=== PATIENT | male | born 1970 | race African-American/Black ===

== ENCOUNTER 2017-10-22 05:34 | Inpatient (IN) | payer OTHER ==
[2017-10-22] MEDS ORDERED: DALBAVANCIN HCL 1,500 MG in DEXTROSE 5%-WATER - 500 ML IVPB ONE ×2 (06:06→06:30)
[2017-10-22] MEDS ORDERED: KETOROLAC TROMETHAMINE 30 MG/1 ML VIAL IVPUSH ONE (06:06)
--- NOTE | 2017-10-22 06:10 | PDOC ---
Attending Attestation - Resident Resident Name: Sa Radhaira - ED Attending Attestation I have performed the following: I have examined & evaluated the patient, The case was reviewed & discussed with the resident, I agree w/resident's findings & plan - HPI HPI: 10/22/17 06:05 47y/o M no sig pmh p/w painful bug bite to R knee for 2 days. Patient likely sustained a bite about 2 days ago, began developing localize redness to the area which has been extending over the last 48 hours, this morning had some subjective fever/chills with progressive pain to the area so he presents for evaluation. No travel, no motor or sensory deficit, no other complaints. - Physicial Exam PE: 10/22/17 06:06 Afebrile, vital signs normal without evidence of SIRS Well-appearing without acute distress except when ranging right knee Right lower extremity: 3-4 cm area of warmth, tender, erythematous induration medial to the patella, some surrounding soft tissue swelling with expansion of the cellulitis proximally and distally 5-6 cm, not quite circumferential. No obvious knee effusion, able to range but with some discomfort. Neurovascularly intact distally. Small excoriation over the induration without areas of fluctuance or purulence or bleeding. No crepitus. - Medical Decision Making 10/22/17 06:08 47-year-old immunocompetent male with infected bug bite to right leg, progressive cellulitis without evidence of deep tissue or joint infection. Neurovascularly intact, hemodynamically stable without evidence of sepsis. Check CBC and send blood cultures Trial of Dalvance for presumed staph/strep infection - discussed and approved by Dr. Alvarenga Pain control - if symptoms improved and no red flags on workup, consider discharge with return for wound check -- unclear whether indurated area may progress to abscess, though no evidence of such at this time.
[2017-10-22 06:21] LABS: EOS % 1.4 % (0-4.5); HEMATOCRIT 42.9 % (35.4-49); HEMOGLOBIN 14.5 GM/dL (11.7-16.9); MCHC 33.9 g/dl (32.0-35.9); MEAN CELL VOLUME 97.2 fl (80-96); MEAN PLT VOLUME 8.7 fl (7.5-11.1); MONO % 13.4 % (3.8-10.2); NEUT % 68.2 % (42.8-82.8); PLATELET COUNT 181 K/MM3 (134-434); RBC 4.41 M/mm3 (4.00-5.60); RDW 11.9 % (11.9-15.9); WHITE BLOOD COUNT 9.2 K/mm3 (4.0-10.0)
--- NOTE | 2017-10-22 06:21 | PDOC ---
History of Present Illness - General Chief Complaint: Bite Stated Complaint: INSECT BITE,SWELLING RT LEG Time Seen by Provider: 10/22/17 05:38 History Source: Patient Exam Limitations: No Limitations - History of Present Illness Initial Comments: 10/22/17 06:09 Pt is a previously healthy 47yo m presenting to ED with complaints of R knee swelling and pain. Pt works for [employer] and thinks he was bit by a bug on 3 days ago because 2 days ago he woke up and noticed his R knee was more swollen and painful. He went to work yesterday and was unable but he was in pain. Pt says he is unable to fully bend his R knee, feels the pain go up to his R groin and R calf. He felt chills today, which is what prompted him to come to the ED for evaluation. Pt admits to subjective fevers and slight dizziness. He denies headache, neck stiffness, pain in other joints, abdominal pain, n/v/d, chest pain, SOB, numbness/tingling. PMH: none PSH: none Meds: none Social: quit tobacco 6 months ago, occasional alcohol use Allergies: nkda Past History - Past Medical History Allergies/Adverse Reactions: Allergies Allergy/AdvReac Type Severity Reaction Status Date / Time No Known Allergies Allergy Verified 10/22/17 05:53 Home Medications: Ambulatory Orders No Home Medications 0 dose .ROUTE UTDICT 04/28/13 - Suicide/Smoking/Psychosocial Hx Smoking History: Never smoked Have you smoked in the past 12 months: No Number of Cigarettes Smoked Daily: 1 Information on smoking cessation initiated: No 'Breaking Loose' booklet given: 04/28/13 Hx Alcohol Use: No Drug/Substance Use Hx: No Substance Use Type: None Review of Systems - Review of Systems Constitutional: Yes: Chills, Fever HEENTM: No: Recent change in vision, Double Vision, Nose Congestion Respiratory: No: Cough, Shortness of Breath Cardiac (ROS): No: Chest Pain, Lightheadedness, Palpitations, Syncope ABD/GI: No: Blood Streaked Bowels, Constipated, Diarrhea, Nausea, Vomiting, Abdominal cramping : Yes: Frequency. No: Burning, Dysuria Musculoskeletal: Yes: Joint Pain (R knee), Joint Stiffness (R knee). No: Back Pain, Muscle Pain, Muscle Weakness, Neck Pain Integumentary: Yes: Erythema (R knee), Rash (R knee) Neurological: No: Headache, Numbness, Paresthesia, Tingling Psychiatric: No: Emotional Problems Hematologic/Lymphatic: No: Anemia *Physical Exam - Vital Signs Last Vital Signs Temp Pulse Resp BP Pulse Ox 98.3 F 82 18 113/66 96 10/22/17 05:35 10/22/17 05:35 10/22/17 05:35 10/22/17 05:35 10/22/17 05:35 - Physical Exam Comments: 10/22/17 06:22 Pt brought into room by wheelchair due to reduced ROM of L knee General Appearance: Yes: Nourished, Appropriately Dressed, Mild Distress HEENT: positive: EOMI, LELAND, Pharynx Normal. negative: Pale Conjunctivae, Scleral Icterus (R), Scleral Icterus (L), Nasal Congestion, Sinus Tenderness Neck: positive: Trachea midline, Supple. negative: Lymphadenopathy (R), Lymphadenopathy (L) Respiratory/Chest: positive: Lungs Clear, Normal Breath Sounds. negative: Crackles, Rales, Rhonchi, Stridor, Wheezing Cardiovascular: positive: Regular Rhythm, Regular Rate, S1, S2, Murmur. negative: JVD Vascular Pulses: Carotid (R): 2+, Carotid (L): 2+, Dorsalis-Pedis (R): 2+, Doralis-Pedis (L): 2+ Gastrointestinal/Abdominal: positive: Normal Bowel Sounds, Soft. negative: Distended, Guarding, Rebound, Tenderness Lymphatic: negative: Adenopathy (No R inguinal adenopathy) Musculoskeletal: positive: Decreased Range of Motion ((active and passive) of R knee. Tender to palpation on anterior aspect medial >lateral. no tenderness posteriorly). negative: CVA Tenderness Extremity: positive: Normal Capillary Refill. negative: Coldness, Cyanosis, Pedal Edema, Swelling, Calf Tenderness Integumentary: positive: Erythema ([id number] area of erythema on R knee extending to R thigh and R calf. Tender to palpation. ), Swelling, Other ( vesicle on medial aspect of R knee, not draining. ). 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 Pt afebrile and hemodynamically stable. DDx: cellulitis, septic arthritis, nec fascitis, lyme disease PE findings did not show target lesion typical for lyme disease. Higher suspicion for MRSA cellulitis given rapid progression of erythema and swelling. No creptius or bullae, low suspicion for nec fas. Pt able to ambulate knee, not frozen low suspicion for septic joint. Will treat cellulitis. -blood cultures, cbc, cmp, lac, ua. -Dalvance, toradol, percocet. Plan for now is to evaluate pt for ability to ambulate. If pt is ambulatory, can DC pt after dose of Dalvance. If unable to ambulate or if unable to obtain approval for Dalvance use in ED by ID, will admit obs and give Vanc. 10/22/17 06:27 Got approval for Dalvance use by ID. 10/22/17 06:35 No white count, normal differential. -Will reevaluate pt and see if he can be ambulatory with pain control. If ambulatory, pt can be dc with pain meds and will need to come back on Wednesday for wound check. Pt does not have PCP. Given handout with PCP affiliated with [facility]. 10/22/17 07:[address] Care handed off to Dr. Hassan *DC/Admit/Observation/Transfer Diagnosis at time of Disposition: Cellulitis Qualifiers: Site of cellulitis: extremity Site of cellulitis of extremity: lower extremity Laterality: right Qualified Code(s): L03.115 - Cellulitis of right lower limb - Discharge Dispostion Disposition: HOME Condition at time of disposition: Improved Decision to Admit order: No - Referrals - Patient Instructions Printed Discharge Instructions: DI for Cellulitis -- Adult, DI for Insect Bites and Stings Additional Instructions: You were seen here today because of swelling and pain in your right knee. You have cellulitis, a bacterial infection of the skin that can be treated with antibiotics. We did blood work here and your results were normal. You were started on antibiotics and given medication for pain control. You do not need to take antibiotics at home. You can take Motrin for pain control. Please come back to the ED on Wednesday for a wound check so that we can make sure you are healing properly. Please come back to the ED if: your pain gets worse, swelling gets worse, you are unable to move or bend your knee, you develop fevers, you develop headache and/or neck stiffness or if any new concerning symptom develops. Thank you - Post Discharge Activity
[2017-10-22] MEDS ORDERED: KETOROLAC TROMETHAMINE 30 MG/1 ML VIAL ONE (06:25)
[2017-10-22] MEDS ORDERED: SODIUM CHLORIDE 1,000 ML IV STA (06:30)
[2017-10-22 06:44] LABS: ALBUMIN 3.4 g/dl (3.4-5.0); ALK PHOS 57 U/L (45-117); ANION GAP 6 MMOL/L (8-16); BILIRUBIN,TOTAL 2.1 mg/dL (0.2-1.0); BLOOD UREA NITROGEN 14 mg/dL (7-18); CALCIUM 8.5 mg/dL (8.5-10.1); CHLORIDE 103 mmol/L (98-107); CO2 29 mmol/L (21-32); GLUCOSE,RANDOM 92 mg/dL (74-106); SODIUM 138 mmol/L (136-145); TOT PROT 6.7 g/dl (6.4-8.2)
[2017-10-22 06:47] LABS: POTASSIUM 4.1 mmol/L (3.5-5.1); SGOT/AST 21 U/L (15-37); SGPT/ALT 21 U/L (12-78)
[2017-10-22 07:03] LABS: URINE APPEARANCE CLEAR; URINE BILIRUBIN NEGATIVE (<2.0 mg/dL); URINE COLOR YELLOW; URINE GLUCOSE (UA) NEGATIVE (NEGATIVE); URINE KETONE NEGATIVE (NEGATIVE); URINE LEUK ESTERASE NEGATIVE (NEGATIVE); URINE NITRITE NEGATIVE (NEGATIVE); URINE PROTEIN NEGATIVE (NEGATIVE); URINE UROBILINOGEN 4.0 E.U/dl mg/dL (0.2-1.0)
[2017-10-22] MEDS ORDERED: ACETAMINOPHEN 1000 MG/100 ML VIAL (NON FORMULARY) IVPB ONE (08:30)
--- NOTE | 2017-10-22 09:10 | PDOC ---
*Physical Exam - Vital Signs Last Vital Signs Temp Pulse Resp BP Pulse Ox 98.3 F 82 18 113/66 96 10/22/17 05:35 10/22/17 05:35 10/22/17 05:35 10/22/17 05:35 10/22/17 05:35 - Physical Exam General Appearance: Yes: Nourished, Appropriately Dressed. No: Apparent Distress Vascular Pulses: Dorsalis-Pedis (R): 3+, Doralis-Pedis (L): 3+ Extremity: positive: Normal Capillary Refill, Swelling (right knee), Erythema ( warmth to right knee), Inflammation (right knee), Other (pain out of proportion , decreased ROM in flexion Right knee). negative: Pedal Edema Neurologic: positive: Fully Oriented, Alert, Normal Mood/Affect, Normal Response ED Treatment Course - LABORATORY CBC & Chemistry Diagram: 10/22/17 06:10 10/22/17 06:10 - ADDITIONAL ORDERS Additional order review: Laboratory Results 10/22/17 10/22/17 10/22/17 06:40 06:10 06:10 Sodium 138 Potassium 4.1 Chloride 103 Carbon Dioxide 29 Anion Gap 6 L BUN 14 Creatinine 1.0 Creat Clearance w eGFR > 60 Random Glucose 92 Lactic Acid 0.8 Calcium 8.5 Total Bilirubin 2.1 H AST 21 ALT 21 Alkaline Phosphatase 57 Total Protein 6.7 Albumin 3.4 Urine Color Yellow Urine Appearance Clear Urine pH 7.0 Ur Specific [place] 1.019 Urine Protein Negative Urine Glucose (UA) Negative Urine Ketones Negative Urine Blood Negative Urine Nitrite Negative Urine Bilirubin Negative Urine Urobilinogen 4.0 e.u/dl Ur Leukocyte Esterase Negative 10/22/17 06:10 RBC 4.41 MCV 97.2 H MCHC 33.9 RDW 11.9 MPV 8.7 Neutrophils % 68.2 Lymphocytes % 16.0 Monocytes % 13.4 H Eosinophils % 1.4 Basophils % 1.0 - RADIOLOGY Radiology Studies Ordered: Category Date Time Status LOWER EXTREMITY CT WITH CONTR [CT] Stat CT Scan 10/22/17 08:28 Ordered - Medications Given in the ED: ED Medications Discontinued Medications Generic Name Dose Route Start Last Admin Trade Name Freq PRN Reason Stop Dose Admin Dalbavancin 1,500 mg/ Dextrose 500 mls @ 1,000 mls/hr 10/22/17 06:30 08:30 IVPB 10/22/17 06:59 1,000 mls/hr ONCE ONE Administration Sodium Chloride 1,000 mls @ 1,000 mls/hr 10/22/17 06:30 10/22/17 06:36 Normal Saline - IV 10/22/17 07:29 1,000 mls/hr ASDIR STA Administration Ketorolac Tromethamine 30 mg 10/22/17 06:06 10/22/17 06:30 Toradol Injection - IVPUSH 10/22/17 06:07 30 mg ONCE ONE Administration Oxycodone/Acetaminophen 1 combo 10/22/17 06:06 10/22/17 06:29 Percocet 5/325 - PO 10/22/17 06:07 1 combo ONCE ONE Administration Medical Decision Making - Medical Decision Making 10/22/17 09:02 47 yo male presents to the ED with a painful and swollen right knee after 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 Pain is out of proportion with flexion. On inspection, 3 cm wide bite wound to the medial aspect of the knee, Knee is swollen red and hot to the touch when compared bilaterally. Patient received pain control and was started on dalbavancin. On re-assessment this AM patient found to still be in excessive pain and is unable to ambulate because of it. Pt also notes the redness is extending distally and proximally. Ordered CT with IV cont of R knee to r/o deep space infection CT shows sub cutaneous edema involving the ventral half of the knee 1 X .7 X .5 suferficial collection which could represent an abbess small to moderate superficial patellar joint effusion Will admit to hospitalist and consult ortho for possible septic joint Spoke with Dr. cheek who would like ID called and consulted and have the pt admitted 10/22/17 13:26 *DC/Admit/Observation/Transfer Diagnosis at time of Disposition: Cellulitis Qualifiers: Site of cellulitis: extremity Site of cellulitis of extremity: lower extremity Laterality: right Qualified Code(s): L03.115 - Cellulitis of right lower limb - Discharge Dispostion Condition at time of disposition: Stable Decision to Admit order: Yes - Referrals - Patient Instructions Printed Discharge Instructions: DI for Cellulitis -- Adult, DI for Insect Bites and Stings Additional Instructions: You were seen here today because of swelling and pain in your right knee. You have cellulitis, a bacterial infection of the skin that can be treated with antibiotics. We did blood work here and your results were normal. You were started on antibiotics and given medication for pain control. You do not need to take antibiotics at home. You can take Motrin for pain control. Please come back to the ED on Wednesday for a wound check so that we can make sure you are healing properly. Please come back to the ED if: your pain gets worse, swelling gets worse, you are unable to move or bend your knee, you develop fevers, you develop headache and/or neck stiffness or if any new concerning symptom develops. Thank you - Post Discharge Activity
[2017-10-22] MEDS ORDERED: ACETAMINOPHEN INJECTION 100 ML IVPB ONE (09:36)
--- NOTE | 2017-10-22 13:29 | CONSULT ---
Consult - text type - Consultation Consultation Note: FULL CONSULT DICTATED IMP: CELLULITIS / SMALL ABSCESS LEFT KNEE. NO EVIDENCE OF SEPTIC ARTHRITIS PLAN: IV ABX PER ID, WILL FOLLOW. MAY NEED TO BE OPENED.
--- NOTE | 2017-10-22 13:48 | HP ---
Admitting History and Physical - Admission Chief Complaint: r knee pain and swelling History of Present Illness: This is a 47year old male with no pmhx, goes to the gym 3x/week. This past Wednesday pt was working and felt something bite his R knee, as it started itching. The knee then swelled up and was warm. He did not work Wednesday, took tylenol for pain and then returned to work and swelling worsened when he was home, along with tenderness tracking up his R thigh, fever, chills. 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 Currently, denies fever, chills, sob, cp, n/v. 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 History of Recent Travel: No Home Medications - Allergies Allergies/Adverse Reactions: Allergies Allergy/AdvReac Type Severity Reaction Status Date / Time No Known Allergies Allergy Verified 10/22/17 05:53 - Home Medications Home Medications: Ambulatory Orders No Home Medications 0 dose .ROUTE UTDICT 04/28/13 Review of Systems - Review of Systems Constitutional: reports: Chills, Fever Eyes: reports: No Symptoms HENT: reports: No Symptoms Neck: reports: No Symptoms Cardiovascular: reports: No Symptoms Respiratory: reports: No Symptoms Gastrointestinal: reports: No Symptoms Genitourinary: reports: No Symptoms Musculoskeletal: reports: Extremity Pain Integumentary: reports: Erythema (r knee) Neurological: reports: No Symptoms Endocrine: reports: No Symptoms Hematology/Lymphatic: reports: No Symptoms Psychiatric: reports: No Symptoms Physical Examination Vital Signs: Vital Signs Temperature 97.6 F 10/22/17 12:18 Pulse Rate 60 10/22/17 12:18 Respiratory Rate 16 10/22/17 12:18 Blood Pressure 100/64 10/22/17 12:18 O2 Sat by Pulse Oximetry (%) 98 10/22/17 12:18 Constitutional: Yes: No Distress Eyes: Yes: Conjunctiva Clear HENT: Yes: Atraumatic Neck: Yes: Supple Cardiovascular: Yes: Regular Rate and Rhythm, S1, S2 Respiratory: Yes: Regular, CTA Bilaterally Gastrointestinal: Yes: Normal Bowel Sounds, Soft Renal/: Yes: WNL Breast(s): Yes: WNL Extremities: Yes: Other (R knee swelling, tenderness, erythema, referring up right thigh) Edema: No Peripheral Pulses WNL: Yes Neurological: Yes: Alert, Oriented, Cran Nerves II-XII Intact Labs: CBC, BMP 10/22/17 06:10 10/22/17 06:10 Imaging - Results Cat Scan: Report Reviewed (sq edema r knee, superficial fluid collection) Assessment/Plan Assessment: 47 year old male admitted with R knee cellulitis Plan: 1. R knee cellulitis - Dalbavcin given in ED - Per ortho, no evidence of septic arthritis, can f/u in office - Further abx per ID, ID aware - Gentle fluids 2. DVT - Heparin sq Visit type - Emergency Visit Emergency Visit: Yes ED Registration Date: 10/22/17 Care time: The patient presented to the Emergency Department on the above date and was hospitalized for further evaluation of their emergent condition. - New Patient This patient is new to me today: Yes Date on this admission: 10/22/17 - Critical Care Critical Care patient: No Hospitalist Screening - Colonoscopy Questionnaire Colonoscopy Questionnaire: Colonoscopy Questionnaire - Patient: 50 - 75 years old and never had a screening colonoscopy: Unknown History of colon or rectal polyps, or CA: Unknown History of IBD, Crohn's disease or UC: Unknown History of abdominal radiation therapy as a child: Unknown - Relative: 1 with colon or rectal CA, or polyps at age 60 or younger: Unknown Colon or rectal CA diagnosed at age 45 or younger: Unknown Multiple relatives with colon or rectal CA: Unknown - Outcome: Screening Result: Negative Screen
--- NOTE | 2017-10-22 13:52 | CONS ---
DATE OF CONSULTATION: 10/22/2017 HISTORY: The patient is a 47-year-old male complaining of knee pain. 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 Three days ago he felt like something bit him or hit him in the knee. Initially it was not too painful. It has gained speed and has been more painful for the past 3 days and presents to the emergency room. Patient denies fever and chills. PHYSICAL EXAMINATION: The patient has some erythema the size of a silver dollar on the anteromedial aspect of the knee medial to the patella. There appears to be a puncture or a deep meghan in the central of this region. No obvious fluctuance is palpable. There is no effusion in the knee. The patient has full range of motion in the knee. Negative lymphangitis or lymphadenopathy in the groin. Good motion hip, knee, ankle, and toes intact. CAT scan shows potentially a very small fluid collection in this region but no other fracture . IMPRESSION: Cellulitis, questionable small abscess. PLAN: As I do not feel a specific area of fluctuance, put the patient on IV antibiotics as prescribed by infectious disease doctor. I will admit the patient to the hospital and follow the patient. The patient may need to have this area opened. We will see how it goes and how he responds to the antibiotics before making that decision. He currently has no white count and no fever and no effusion in the knee. Admit him for IV antibiotics and observation overnight. MARCO A REYES M.D. [id number]
[2017-10-22] MEDS ORDERED: SODIUM CHLORIDE 1,000 ML IV SCH (14:00)
--- NOTE | 2017-10-22 15:45 | PN ---
Progress Note (short form) - Note Progress Note: ID Consult dictated Cellulitis/ early ST abscess R knee R/O sepsis secondary to skin source Hx MRSA soft tissue infection Pending c/s empiric vancomycin Surgical follow up
--- NOTE | 2017-10-22 16:18 | CONS ---
DATE OF CONSULTATION: DATE OF DICTATION: 10/22/2017 INFECTIOUS DISEASE CONSULTATION HISTORY OF PRESENT ILLNESS: A 47-year-old healthy male evaluated for cellulitis of the right lower extremity. Patient works for [employer]. He reports feeling a stinging sensation in his right knee on Thursday, October 19, 2017. He believes he sustained an insect bite to his right medial knee. It became pruritic, and patient started scratching it. The following day he developed increasing pain and swelling as well as redness. He presented to the emergency room, where he was found to have cellulitis and possible early soft tissue abscess. Cultures were obtained. He was empirically treated with Dalvance. He was seen in consultation by orthopedics. The patient denies any associated fever or chills. He does not have any complaints of pain at the present time. The patient reports that several years ago he had an MRSA soft tissue abscess of the right hip. PAST MEDICAL HISTORY: As above. ALLERGIES: No known allergies. MEDICATION: Medications at the present time include Tylenol, heparin, oxycodone. SOCIAL HISTORY: Works for the [employer]. He is a nonsmoker, nondrinker. SYSTEMS REVIEW: Neurologic: No loss of consciousness, seizure activity, focal weakness. Cardiac: Negative for chest pain or palpitations. Gastrointestinal: Negative vomiting or diarrhea. Genitourinary: Negative for urinary tract infection. LABORATORY DATA: White count 9.2, hematocrit 42.9, platelet count 181, creatinine 1.0, C-reactive protein 3.5. CAT scan of the right lower extremity reveals subcutaneous edema at the level of the right knee and a small superficial subcutaneous fluid collection along the ventral medial aspect of the right knee which could represent early abscess. PHYSICAL EXAMINATION: General: On exam, he is awake and alert, in no acute distress. Vital signs: Temperature 97.6, blood pressure 110/82, pulse 70 regular, respirations 18 per minute. HEENT: Sclerae anicteric. Cardiovascular: Heart sounds S1, S2. Lungs: Clear. Abdomen: Soft, nontender. Extremities: Examination of the right lower extremity, there is a 6 x 7 cm area of erythema and soft tissue swelling with slight fluctuance, tender to touch. There is no expressible pus. There also appears to be lymphangitis involving the right medial thigh. Extremities negative for edema. IMPRESSION: 1. Cellulitis/early soft tissue abscess right knee. 2. Possible sepsis secondary to skin source. 3. 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 4. Status post apparent insect bite. Await cultures. Empiric antibiotic coverage with vancomycin pending cultures. Surgical followup. Analgesics. Warm compresses. Will follow. Thank you for the kind referral. SAM MCWILLIAMS M.D. [id number]
[2017-10-22] MEDS ORDERED: VANCOMYCIN 1 GRAM (PRE-DOCKED) 1,000 MG/250 ML BAG IVPB ONE (16:28)
[2017-10-22] MEDS: VANCOMYCIN 1 GM PREMIX - 1 GM/200 ML BAG IVPB SCH (16:41)
[2017-10-22 17:57] VITALS: BMI 24.5
[2017-10-22] MEDS: oxyCODONE HCL 5 MG TABLET PO PRN (18:02)
[2017-10-22] MEDS: ACETAMINOPHEN 325 MG TABLET (FP) PO PRN (18:02)
[2017-10-22] MEDS: HEPARIN NA (PORCINE) 5,000 UNITS/ML 1ML VIAL SQ SCH (22:09)
[2017-10-23] MEDS: oxyCODONE HCL 5 MG TABLET PO PRN ×2 (01:17→07:50)
[2017-10-23] MEDS: ACETAMINOPHEN 325 MG TABLET (FP) PO PRN ×2 (01:17→07:51)
[2017-10-23] MEDS: VANCOMYCIN 1 GM PREMIX - 1 GM/200 ML BAG IVPB SCH ×2 (04:11→16:39)
[2017-10-23] MEDS: HEPARIN NA (PORCINE) 5,000 UNITS/ML 1ML VIAL SQ SCH ×3 (05:18→21:09)
[2017-10-23 07:35] LABS: BASO % 0.8 % (0-2.0); EOS % 3.6 % (0-4.5); HEMATOCRIT 41.4 % (35.4-49); LYMPH % 20.6 % (8-40); MCH 32.8 pg (25.7-33.7); MCHC 33.9 g/dl (32.0-35.9); MEAN CELL VOLUME 96.7 fl (80-96); MEAN PLT VOLUME 8.8 fl (7.5-11.1); MONO % 12.1 % (3.8-10.2); NEUT % 62.9 % (42.8-82.8); PLATELET COUNT 167 K/MM3 (134-434); RBC 4.28 M/mm3 (4.00-5.60); RDW 11.8 % (11.9-15.9); WHITE BLOOD COUNT 7.4 K/mm3 (4.0-10.0)
[2017-10-23 08:05] LABS: ALBUMIN 3.1 g/dl (3.4-5.0); ANION GAP 4 MMOL/L (8-16); BLOOD UREA NITROGEN 9 mg/dL (7-18); CALCIUM 8.5 mg/dL (8.5-10.1); CHLORIDE 104 mmol/L (98-107); CO2 31 mmol/L (21-32); GLUCOSE,RANDOM 80 mg/dL (74-106); POTASSIUM 4.1 mmol/L (3.5-5.1); SODIUM 139 mmol/L (136-145)
[2017-10-23 08:09] LABS: ALK PHOS 55 U/L (45-117); BILIRUBIN,TOTAL 1.6 mg/dL (0.2-1.0); CREATININE 1.2 mg/dL (0.7-1.3); SGOT/AST 13 U/L (15-37); SGPT/ALT 15 U/L (12-78); TOT PROT 6.2 g/dl (6.4-8.2)
[2017-10-23] MEDS ORDERED: oxyCODONE HCL 5 MG TABLET PO PRN ×2 (10:09→15:02)
--- NOTE | 2017-10-23 10:29 | PN ---
Progress Note (short form) - Note Progress Note: still with pain in his knee reports having had a "bug bite" on his left eyebrow that became swollen and drained pus two weeks ago feverish at home before admission for his knee which he again attributes to a "bugbite" Vital Signs Period Temp Pulse Resp BP Sys/Miller Pulse Ox Last 24 Hr 97.6 F-98.2 F 60-75 16-20 100-129/54-80 97-99 cor-rrr lungs clear abd soft,nt ext +pustule with surrounding erythema and fluctuance left knee CBC, BMP 10/23/17 06:00 10/23/17 06:00 Microbiology 10/22/17 06:27 Blood - Peripheral Venous Blood Culture - Preliminary Presumptive Mrsa (Pbp2a Pos) 10/22/17 06:10 Blood - Peripheral Venous Blood Culture - Preliminary NO GROWTH OBTAINED AFTER 24 HOURS, INCUBATION TO CONTINUE FOR 4 DAYS. a/p bacteremia- ?MRSA MRSA soft tissue infection repeat blood cultures esr/crp echo vancomycin vancomycin level d/w patient at length he needs a note for work
[2017-10-23] MEDS: DOCUSATE SODIUM 100 MG CAPSULE (FP) PO SCH ×2 (14:04→21:09)
--- NOTE | 2017-10-23 15:03 | PN ---
Physical Exam: SUBJECTIVE: Patient seen and examined at the bedside. Having right knee pain, now with drainage. OBJECTIVE: Vital Signs Period Temp Pulse Resp BP Sys/Miller Pulse Ox Last 24 Hr 97.7 F-98.2 F 70-75 18-20 107-129/67-80 97-99 GENERAL: The patient is awake, alert, and fully oriented, in no acute distress. HEAD: Normal with no signs of trauma. EYES: PERRL, extraocular movements intact, sclera anicteric, conjunctiva clear. No ptosis. ENT: Ears normal, nares patent, oropharynx clear without exudates, moist mucous membranes. NECK: Trachea midline, full range of motion, supple. LUNGS: Breath sounds equal, clear to auscultation bilaterally HEART: Regular rate and rhythm, S1, S2 without murmur, rub or gallop. ABDOMEN: Soft, nontender, nondistended, normoactive bowel sounds, no guarding, no rebound, no hepatosplenomegaly, no masses. EXTREMITIES: right knee localized edema and drainage NEUROLOGICAL: Normal speech, gait not observed. PSYCH: Normal mood, normal affect. SKIN: Warm, dry, normal turgor, no rashes or lesions noted Laboratory Results - last 24 hr 10/22/17 10/23/17 10/23/17 14:47 06:00 06:00 WBC 7.4 RBC 4.28 Hgb 14.0 Hct 41.4 MCV 96.7 H MCH 32.8 MCHC 33.9 RDW 11.8 L Plt Count 167 MPV 8.8 Absolute Neuts (auto) 4.7 Neutrophils % 62.9 Lymphocytes % 20.6 D Monocytes % 12.1 H Eosinophils % 3.6 D Basophils % 0.8 Nucleated RBC % 0 ESR 7 Sodium 139 Potassium 4.1 Chloride 104 Carbon Dioxide 31 Anion Gap 4 L BUN 9 Creatinine 1.2 Creat Clearance w eGFR > 60 Random Glucose 80 Calcium 8.5 Total Bilirubin 1.6 H AST 13 L D ALT 15 D Alkaline Phosphatase 55 Total Protein 6.2 L Albumin 3.1 L Active Medications Generic Name Dose Route Start Last Admin Trade Name Freq PRN Reason Stop Dose Admin Acetaminophen 650 mg 10/22/17 13:53 10/23/17 07:51 Tylenol - PO 650 mg Q4H PRN Administration PAIN LEVEL 1 - 3 Docusate Sodium 100 mg 10/23/17 14:00 10/23/17 14:04 Colace - PO 100 mg TID DEE Administration Heparin Sodium (Porcine) 5,000 unit 10/22/17 22:00 10/23/17 14:04 Heparin - SQ 5,000 unit TID DEE Administration Vancomycin HCl 1 gm in 200 mls @ 133.333 mls/hr 10/22/17 16:00 10/23/17 04:11 Vancomycin 1 Gm Premix - IVPB 133.333 mls/hr Q12H DEE Administration Protocol Oxycodone HCl 10 mg 10/23/17 15:02 Roxicodone - PO Q6H PRN PAIN LEVEL 7 - 10 Oxycodone HCl 5 mg 10/23/17 15:02 Roxicodone - PO Q6H PRN PAIN LEVEL 1-5 Zolpidem Tartrate 5 mg 10/23/17 15:02 Ambien - PO HS PRN INSOMNIA ASSESSMENT/PLAN: Patient is a 47 year old male with no significant past medical history. Admitted on 10/22/17 for right knee cellulitis. labs: + blood cultures with presumptive mrsa, one bottle. repeat blood cultures ordered. ID: Right knee cellulitis. On Vancomycin 112. Per ortho, no evidence of septic arthritis, but wound may need to be opened and drained. Minimal drainage noted , therefore will send out for culture. Pain managed with oxycodone based on pain level. physical therapy as tolerated. fen tolerating PO monitor electrolytes low salt diet prophy heparin full code Visit type - Emergency Visit Emergency Visit: Yes ED Registration Date: 10/22/17 Care time: The patient presented to the Emergency Department on the above date and was hospitalized for further evaluation of their emergent condition. - New Patient This patient is new to me today: Yes Date on this admission: 10/23/17 - Critical Care Critical Care patient: No - Discharge Referral Referred to [facility] Med [facility].C.: No
[2017-10-23] MEDS ORDERED: PT OWN MED DRAWER 7, Y5N ONE (16:29)
--- NOTE | 2017-10-23 17:19 | PN ---
Progress Note (short form) - Note Progress Note: Ortho Pt seen and examined- feeling better Selected Entries 10/23/17 15:37 Temperature 98.4 F Pulse Rate 71 Respiratory 20 Rate Blood Pressure 124/58 Laboratory Tests 10/23/17 06:00 WBC 7.4 Hgb 14.0 Hct 41.4 Plt Count 167 slight drainage from wound, no drainage was able to be expressed, decr pain, incr rom nvi a/p f/u cultures IV abx ROM exercises pain control will follow closely, may still need I&D d/w Dr. Amezquita
[2017-10-23] MEDS: ZOLPIDEM TARTRATE 5 MG TABLET PO PRN (21:09)
[2017-10-24] MEDS: oxyCODONE HCL 5 MG TABLET PO PRN ×2 (03:31→22:09)
[2017-10-24] MEDS: VANCOMYCIN 1 GM PREMIX - 1 GM/200 ML BAG IVPB SCH ×2 (03:32→16:24)
[2017-10-24] MEDS: DOCUSATE SODIUM 100 MG CAPSULE (FP) PO SCH ×3 (05:39→22:09)
[2017-10-24] MEDS: HEPARIN NA (PORCINE) 5,000 UNITS/ML 1ML VIAL SQ SCH ×3 (05:39→22:09)
[2017-10-24] MEDS: ACETAMINOPHEN 325 MG TABLET (FP) PO PRN (09:38)
[2017-10-24 09:41] LABS: BASO % 0.7 % (0-2.0); EOS % 2.4 % (0-4.5); HEMATOCRIT 43.7 % (35.4-49); HEMOGLOBIN 14.7 GM/dL (11.7-16.9); LYMPH % 18.3 % (8-40); MCH 32.4 pg (25.7-33.7); MCHC 33.6 g/dl (32.0-35.9); MEAN CELL VOLUME 96.4 fl (80-96); MEAN PLT VOLUME 9.3 fl (7.5-11.1); MONO % 13.9 % (3.8-10.2); NEUT % 64.7 % (42.8-82.8); PLATELET COUNT 196 K/MM3 (134-434); RBC 4.54 M/mm3 (4.00-5.60); RDW 11.9 % (11.9-15.9); WHITE BLOOD COUNT 8.6 K/mm3 (4.0-10.0)
--- NOTE | 2017-10-24 10:03 | PN ---
Progress Note (short form) - Note Progress Note: still with pain in his knee reports having had a "bug bite" on his left eyebrow that became swollen and drained pus two weeks ago feverish at home before admission for his knee which he again attributes to a "bugbite" no other complaints Vital Signs Period Temp Pulse Resp BP Sys/Miller Pulse Ox Last 24 Hr 98.4 F-99.3 F 71-87 18-20 106-132/58-76 96-96 cor-rrr lungs clear abd soft,nt ext + knee abscess- painful , minimal drainage bloody CBC, BMP 10/24/17 06:00 Microbiology 10/22/17 06:10 Blood - Peripheral Venous Blood Culture - Preliminary NO GROWTH OBTAINED AFTER 48 HOURS, INCUBATION TO CONTINUE FOR 3 DAYS. 10/22/17 06:27 Blood - Peripheral Venous Blood Culture - Preliminary Presumptive Mrsa (Pbp2a Pos) Laboratory Tests 10/22/17 10/24/17 13:20 06:00 ESR 15 H C-Reactive Protein 3.5 H a/p bacteremia- MRSA MRSA soft tissue infection repeat blood cultures pending ekg ordered echo ordered continue vancomycin vancomycin tough today contact isolation d/w patient at length he needs a note for work
[2017-10-24 10:05] LABS: ALBUMIN 3.4 g/dl (3.4-5.0); ANION GAP 9 MMOL/L (8-16); BLOOD UREA NITROGEN 8 mg/dL (7-18); CALCIUM 8.9 mg/dL (8.5-10.1); CHLORIDE 101 mmol/L (98-107); CO2 28 mmol/L (21-32); CREATININE 1.2 mg/dL (0.7-1.3); GLUCOSE,RANDOM 81 mg/dL (74-106); POTASSIUM 3.9 mmol/L (3.5-5.1); SGOT/AST 12 U/L (15-37); SGPT/ALT 16 U/L (12-78); SODIUM 138 mmol/L (136-145)
[2017-10-24 10:06] LABS: BILIRUBIN,TOTAL 1.5 mg/dL (0.2-1.0); TOT PROT 6.6 g/dl (6.4-8.2)
[2017-10-24 10:07] LABS: ALK PHOS 63 U/L (45-117)
--- NOTE | 2017-10-24 11:31 | PN ---
Physical Exam: SUBJECTIVE: Patient seen and examined at the bedside. Feels well, slept well. still having pain of left knee, controlled with oxy. OBJECTIVE: right knee wound with now small raised formation of scab with minimal drainage Vital Signs Period Temp Pulse Resp BP Sys/Miller Pulse Ox Last 24 Hr 98.2 F-99.3 F 71-95 18-20 106-133/58-76 96-96 GENERAL: The patient is awake, alert, and fully oriented, in no acute distress. HEAD: Normal with no signs of trauma. EYES: PERRL, extraocular movements intact, sclera anicteric, conjunctiva clear. No ptosis. ENT: Ears normal, nares patent, oropharynx clear without exudates, moist mucous membranes. NECK: Trachea midline, full range of motion, supple. LUNGS: Breath sounds equal, clear to auscultation bilaterally HEART: Regular rate and rhythm, S1, S2 without murmur, rub or gallop. ABDOMEN: Soft, nontender, nondistended, normoactive bowel sounds, no guarding, no rebound, no hepatosplenomegaly, no masses. EXTREMITIES: right knee localized edema and minimal drainage NEUROLOGICAL: Normal speech, gait not observed. PSYCH: Normal mood, normal affect. SKIN: Warm, dry, normal turgor, no rashes or lesions noted Laboratory Results - last 24 hr 10/24/17 10/24/17 10/24/17 06:00 06:00 06:00 WBC 8.6 RBC 4.54 Hgb 14.7 Hct 43.7 MCV 96.4 H MCH 32.4 MCHC 33.6 RDW 11.9 Plt Count 196 MPV 9.3 Absolute Neuts (auto) 5.6 Neutrophils % 64.7 Lymphocytes % 18.3 Monocytes % 13.9 H Eosinophils % 2.4 Basophils % 0.7 Nucleated RBC % 0 ESR 15 H Sodium 138 Potassium 3.9 Chloride 101 Carbon Dioxide 28 Anion Gap 9 BUN 8 Creatinine 1.2 Creat Clearance w eGFR > 60 Random Glucose 81 Calcium 8.9 Magnesium 2.0 Total Bilirubin 1.5 H AST 12 L ALT 16 Alkaline Phosphatase 63 C-Reactive Protein 5.5 H Total Protein 6.6 Albumin 3.4 10/24/17 06:00 WBC RBC Hgb Hct MCV MCH MCHC RDW Plt Count MPV Absolute Neuts (auto) Neutrophils % Lymphocytes % Monocytes % Eosinophils % Basophils % Nucleated RBC % ESR Sodium Potassium Chloride Carbon Dioxide Anion Gap BUN Creatinine Creat Clearance w eGFR Random Glucose Calcium Magnesium Cancelled Total Bilirubin AST ALT Alkaline Phosphatase C-Reactive Protein Total Protein Albumin Active Medications Generic Name Dose Route Start Last Admin Trade Name Freq PRN Reason Stop Dose Admin Acetaminophen 650 mg 10/22/17 13:53 10/24/17 09:38 Tylenol - PO 650 mg Q4H PRN Administration PAIN LEVEL 1 - 3 Docusate Sodium 100 mg 10/23/17 14:00 10/24/17 05:39 Colace - PO 100 mg TID DEE Administration Heparin Sodium (Porcine) 5,000 unit 10/22/17 22:00 10/24/17 05:39 Heparin - SQ 5,000 unit TID DEE Administration Vancomycin HCl 1 gm in 200 mls @ 133.333 mls/hr 10/22/17 16:00 10/24/17 03:32 Vancomycin 1 Gm Premix - IVPB 133.333 mls/hr Q12H DEE Administration Protocol Oxycodone HCl 10 mg 10/23/17 15:02 10/24/17 03:31 Roxicodone - PO 10 mg Q6H PRN Administration PAIN LEVEL 7 - 10 Oxycodone HCl 5 mg 10/23/17 15:02 10/24/17 09:39 Roxicodone - PO 5 mg Q6H PRN Administration PAIN LEVEL 1-5 Zolpidem Tartrate 5 mg 10/23/17 15:02 10/23/17 21:09 Ambien - PO 5 mg HS PRN Administration INSOMNIA ASSESSMENT/PLAN: Patient is a 47 year old male with no significant past medical history. Admitted on 10/22/17 for right knee cellulitis. labs: + blood cultures with presumptive mrsa, one bottle. repeat blood cultures ordered. wound cultures pending ID: Right knee cellulitis/abscess. right knee wound with now small raised formation of scab with minimal drainage. On Vancomycin q12. Per ortho, no evidence of septic arthritis, but wound may need to be opened and drained. Minimal drainage noted, wound cultures pending. Pain managed with oxycodone based on pain level. physical therapy as tolerated. fen tolerating PO monitor electrolytes low salt diet prophy heparin full code Visit type - Emergency Visit Emergency Visit: Yes ED Registration Date: 10/22/17 Care time: The patient presented to the Emergency Department on the above date and was hospitalized for further evaluation of their emergent condition. - New Patient This patient is new to me today: No - Critical Care Critical Care patient: No - Discharge Referral Referred to [facility] No
[2017-10-24] MEDS ORDERED: PT OWN MED DRAWER 7, Y5N ONE (16:01)
[2017-10-24] MEDS: ZOLPIDEM TARTRATE 5 MG TABLET PO PRN (23:09)
[2017-10-25] MEDS: VANCOMYCIN 1,250 MG in DEXTROSE 5%-WATER - 250 ML IVPB SCH ×2 (04:16→15:28)
[2017-10-25] MEDS: HEPARIN NA (PORCINE) 5,000 UNITS/ML 1ML VIAL SQ SCH ×3 (06:52→22:47)
[2017-10-25] MEDS: oxyCODONE HCL 5 MG TABLET PO PRN (06:55)
[2017-10-25] MEDS: DOCUSATE SODIUM 100 MG CAPSULE (FP) PO SCH ×3 (07:22→22:46)
[2017-10-25 07:25] LABS: EOS % 3.6 % (0-4.5); HEMATOCRIT 45.8 % (35.4-49); HEMOGLOBIN 15.4 GM/dL (11.7-16.9); MCH 32.5 pg (25.7-33.7); MCHC 33.6 g/dl (32.0-35.9); MEAN CELL VOLUME 96.9 fl (80-96); MEAN PLT VOLUME 9.1 fl (7.5-11.1); MONO % 14.5 % (3.8-10.2); NEUT % 57.9 % (42.8-82.8); PLATELET COUNT 206 K/MM3 (134-434); RBC 4.72 M/mm3 (4.00-5.60); RDW 11.8 % (11.9-15.9); WHITE BLOOD COUNT 7.2 K/mm3 (4.0-10.0)
[2017-10-25 08:00] LABS: ALBUMIN 3.4 g/dl (3.4-5.0); ANION GAP 9 MMOL/L (8-16); BLOOD UREA NITROGEN 10 mg/dL (7-18); CALCIUM 8.9 mg/dL (8.5-10.1); CHLORIDE 101 mmol/L (98-107); CO2 28 mmol/L (21-32); GLUCOSE,RANDOM 95 mg/dL (74-106); POTASSIUM 4.3 mmol/L (3.5-5.1); SODIUM 138 mmol/L (136-145)
[2017-10-25 08:05] LABS: ALK PHOS 66 U/L (45-117); BILIRUBIN,TOTAL 1.3 mg/dL (0.2-1.0); CREATININE 1.1 mg/dL (0.7-1.3); SGOT/AST 16 U/L (15-37); SGPT/ALT 17 U/L (12-78)
--- NOTE | 2017-10-25 10:32 | EKG ---
Test Reason : Blood Pressure : / mmHG Vent. Rate : 062 BPM Atrial Rate : 062 BPM P-R Int : 190 ms QRS Dur : 102 ms QT Int : 378 ms P-R-T Axes : 071 079 056 degrees QTc Int : 383 ms NORMAL SINUS RHYTHM NORMAL ECG WHEN COMPARED WITH ECG OF 11-SEP-2010 11:32, NO SIGNIFICANT CHANGE WAS FOUND Confirmed by PERLA CLEMENTS MD ([id number]) on 10/25/2017 10:32:09 AM Referred By: Leo PANG Confirmed By:PERLA CLEMENTS MD
--- NOTE | 2017-10-25 11:25 | PN ---
Progress Note (short form) - Note Progress Note: Ortho Pt seen and examined- feeling better Selected Entries 10/23/17 15:37 Temperature 98.4 F Pulse Rate 71 Respiratory 20 Rate Blood Pressure 124/58 Laboratory Tests 10/23/17 06:00 WBC 7.4 Hgb 14.0 Hct 41.4 Plt Count 167 slight drainage from wound, no drainage was able to be expressed, abscess demarcating itself, decr pain, incr rom nvi a/p continue ABX keep NPO after midnight probable I&D tomorrow in OR will follow d/w Dr. Amezquita
--- NOTE | 2017-10-25 11:31 | PN ---
Physical Exam: SUBJECTIVE: Patient seen and examined at the bedside. Feels better today as his pain is controlled with oxycodone. sleeping better with ambien. OBJECTIVE: npo at midnight for I&D for Dr. Bragg on 10/26/2017 NS @ 100cc to start at midnight after NPO, morphine 1mg max 2 doses to be given if patient has pain while npo right knee leg wound cleansed by me with MARY and noel. wound culture with mrsa Vital Signs Period Temp Pulse Resp BP Sys/Miller Pulse Ox Last 24 Hr 98.1 F-98.5 F 70-82 18-20 98-130/50-65 96-99 GENERAL: The patient is awake, alert, and fully oriented, in no acute distress. HEAD: Normal with no signs of trauma. EYES: PERRL, extraocular movements intact, sclera anicteric, conjunctiva clear. No ptosis. ENT: Ears normal, nares patent, oropharynx clear without exudates, moist mucous membranes. NECK: Trachea midline, full range of motion, supple. LUNGS: Breath sounds equal, clear to auscultation bilaterally HEART: Regular rate and rhythm, S1, S2 without murmur, rub or gallop. ABDOMEN: Soft, nontender, nondistended, normoactive bowel sounds, no guarding, no rebound, no hepatosplenomegaly, no masses. EXTREMITIES: right knee localized edema and minimal drainage - wound cleansed, sterile dressing applied. NEUROLOGICAL: Normal speech, gait not observed. PSYCH: Normal mood, normal affect. Laboratory Results - last 24 hr 10/24/17 10/25/17 10/25/17 14:40 06:00 06:00 WBC 7.2 RBC 4.72 Hgb 15.4 Hct 45.8 MCV 96.9 H MCH 32.5 MCHC 33.6 RDW 11.8 L Plt Count 206 MPV 9.1 Absolute Neuts (auto) 4.1 Neutrophils % 57.9 Lymphocytes % 23.0 D Monocytes % 14.5 H Eosinophils % 3.6 Basophils % 1.0 Nucleated RBC % 0 Sodium 138 Potassium 4.3 Chloride 101 Carbon Dioxide 28 Anion Gap 9 BUN 10 Creatinine 1.1 Creat Clearance w eGFR > 60 Random Glucose 95 Calcium 8.9 Total Bilirubin 1.3 H AST 16 D ALT 17 Alkaline Phosphatase 66 Total Protein 7.0 Albumin 3.4 Vancomycin Pre-Dose 7.08 Active Medications Generic Name Dose Route Start Last Admin Trade Name Freq PRN Reason Stop Dose Admin Acetaminophen 650 mg 10/22/17 13:53 10/24/17 09:38 Tylenol - PO 650 mg Q4H PRN Administration PAIN LEVEL 1 - 3 Docusate Sodium 100 mg 10/23/17 14:00 10/25/17 07:22 Colace - PO Not Given TID DEE Heparin Sodium (Porcine) 5,000 unit 10/22/17 22:00 10/25/17 06:52 Heparin - SQ 5,000 unit TID DEE Administration Vancomycin HCl 1,250 mg/ 250 mls @ 166.667 mls/hr 10/25/17 04:00 10/25/17 04: 16 Dextrose IVPB 166.667 mls/hr Q12H DEE Administration Sodium Chloride 1,000 mls @ 100 mls/hr 10/26/17 00:00 Normal Saline - IV ASDIR DEE Morphine Sulfate 1 mg 10/26/17 00:00 Morphine Injection - IVPUSH Q6H PRN PAIN Oxycodone HCl 10 mg 10/23/17 15:02 10/25/17 06:55 Roxicodone - PO 10 mg Q6H PRN Administration PAIN LEVEL 7 - 10 Oxycodone HCl 5 mg 10/23/17 15:02 10/24/17 09:39 Roxicodone - PO 5 mg Q6H PRN Administration PAIN LEVEL 1-5 Zolpidem Tartrate 5 mg 10/23/17 15:02 10/24/17 23:09 Ambien - PO 5 mg HS PRN Administration INSOMNIA ASSESSMENT/PLAN: Patient is a 47 year old male with no significant past medical history. Admitted on 10/22/17 for right knee cellulitis. Wound cultures of knee with + mrsa.. labs: + blood cultures with presumptive mrsa, one bottle. repeat blood cultures ordered and pending. wound cultures +mrsa. ID: Right knee cellulitis/abscess/+mrsa right knee wound with now small raised formation of scab with minimal drainage. On Vancomycin q12. Per ortho, no evidence of septic arthritis. Patient to have I&D tomorrow 10/26/2017. NPO at midnight. Minimal drainage noted, wound cultures +mrsa. Pain managed with oxycodone based on pain level. physical therapy as tolerated. fen tolerating PO monitor electrolytes low salt diet prophy heparin full code Visit type - Emergency Visit Emergency Visit: Yes ED Registration Date: 10/22/17 Care time: The patient presented to the Emergency Department on the above date and was hospitalized for further evaluation of their emergent condition. - New Patient This patient is new to me today: No - Critical Care Critical Care patient: No - Discharge Referral Referred to [facility] Med [facility]C.: No
[2017-10-25] MEDS ORDERED: PT OWN MED DRAWER 7, Y5N ONE (11:35)
--- NOTE | 2017-10-25 12:00 | ECHO ---
Name: DIMAS DEVINE Exam:Adult Echocardiogram Study Date: 10/25/2017 09:52 AM Age: 47 yrs Reason For Study: R/O Endocarditis Height: 72 in Weight: 181 lb BSA: 2.0 m2 MMode/2D Measurements & Calculations IVSd: 0.96 cm Ao root diam: 2.9 cm LVIDd: 5.0 cm LA dimension: 2.5 cm LVIDs: 3.6 cm LVPWd: 1.1 cm EDV(Teich): 116.1 ml ESV(Teich): 53.0 ml Doppler Measurements & Calculations MV E max finesse: 58.2 cm/sec Med Peak E' Finesse: 8.4 cm/sec MV A max finesse: 71.3 cm/sec Med E/e': 6.9 MV E/A: 0.82 Lat Peak E' Finesse: 8.6 cm/sec MV dec time: 0.18 sec Lat E/e': 6.8 PI Vmax: 130.3 cm/sec Procedure A complete two-dimensional transthoracic echocardiogram was performed (2D, M-mode, Doppler and color flow Doppler). Left Ventricle The left ventricle is normal in size. Left ventricular systolic function is normal. Ejection Fraction = 55- 60%. No regional wall motion abnormalities noted. Right Ventricle The right ventricle is normal size. The right ventricular systolic function is normal. Atria The left atrial size is normal. Right atrial size is normal. Mitral Valve The mitral valve is normal in structure and function. There is no vegetation seen on the mitral valve . There is no mitral regurgitation noted. Tricuspid Valve The tricuspid valve is normal in structure and function. There is no tricuspid valve vegetation. Ther e is mild tricuspid regurgitation. Aortic Valve The aortic valve is normal in structure and function. There is no aortic valvular vegetation. No aort ic regurgitation is present. Pulmonic Valve The pulmonic valve is not well visualized. There is no vegetation on the pulmonic valve. Great Vessels The aortic root is normal size. Pericardium/Pleura There is no pericardial effusion. Interpretation Summary The left ventricle is normal in size. Left ventricular systolic function is normal. No regional wall motion abnormalities noted. Ejection Fraction = 55-60%. The right ventricular systolic function is normal. The left atrial size is normal. Right atrial size is normal. There is mild tricuspid regurgitation. There is no pericardial effusion. No obvious vegetations are seen. Clinical correlation is recommended Previous study is not available for comparison Iain Castro MD 10/25/2017 12:00 PM
--- NOTE | 2017-10-25 15:04 | PN ---
Progress Note, Physician History of Present Illness: C/O R knee pain No wound drainage reported No fever/ chills Afebrile WBC 7.2 - Current Medication List Current Medications: Active Medications Acetaminophen (Tylenol -) 650 mg PO Q4H PRN PRN Reason: PAIN LEVEL 1 - 3 Last Admin: 10/24/17 09:38 Dose: 650 mg Docusate Sodium (Colace -) 100 mg PO TID [facility] [place] Last Admin: 10/25/17 14:00 Dose: 100 mg Heparin Sodium (Porcine) (Heparin -) 5,000 unit SQ TID [facility] [place] Last Admin: 10/25/17 14:00 Dose: 5,000 unit Vancomycin HCl 1,250 mg/ (Dextrose) 250 mls @ 166.667 mls/hr IVPB Q12H [facility] [place] Last Admin: 10/25/17 04:16 Dose: 166.667 mls/hr Sodium Chloride (Normal Saline -) 1,000 mls @ 100 mls/hr IV ASDIR [facility] Morphine Sulfate (Morphine Injection -) 1 mg IVPUSH Q6H PRN PRN Reason: PAIN LEVEL 7 - 10 Oxycodone HCl (Roxicodone -) 10 mg PO Q6H PRN PRN Reason: PAIN LEVEL 7 - 10 Last Admin: 10/25/17 06:55 Dose: 10 mg Oxycodone HCl (Roxicodone -) 5 mg PO Q6H PRN PRN Reason: PAIN LEVEL 1-5 Last Admin: 10/24/17 09:39 Dose: 5 mg Zolpidem Tartrate (Ambien -) 5 mg PO HS PRN PRN Reason: INSOMNIA Last Admin: 10/24/17 23:09 Dose: 5 mg - Objective Vital Signs: Vital Signs Temperature 98.1 F 10/25/17 14:31 Pulse Rate 81 10/25/17 14:31 Respiratory Rate 18 10/25/17 14:31 Blood Pressure 108/60 10/25/17 14:31 O2 Sat by Pulse Oximetry (%) 99 10/25/17 10:00 Constitutional: Yes: No Distress Eyes: Yes: Conjunctiva Clear Cardiovascular: Yes: Regular Rate and Rhythm, S1, S2 Respiratory: Yes: CTA Bilaterally Gastrointestinal: Yes: Normal Bowel Sounds, Soft. No: Tenderness Extremities: Yes: Other (tender, fluctuant area R medial knee. No expressible pus) Labs: CBC, BMP 10/25/17 06:00 10/25/17 06:00 Assessment/Plan Cellulitis/ soft tissue abscess R knee MRSA MRSA bacteremia Continue vancomycin For I&D in OR
--- NOTE | 2017-10-25 20:27 | HOSP ---
Physical Examination Vital Signs: Vital Signs Temperature 98.1 F 10/25/17 18:15 Pulse Rate 75 10/25/17 18:15 Respiratory Rate 18 10/25/17 18:15 Blood Pressure 122/73 10/25/17 18:15 O2 Sat by Pulse Oximetry (%) 99 10/25/17 10:00 Eyes: Yes: WNL HENT: Yes: WNL Neck: Yes: WNL Cardiovascular: Yes: WNL Respiratory: Yes: WNL Gastrointestinal: Yes: WNL Labs: CBC, BMP 10/25/17 06:00 10/25/17 06:00 Hospitalist Encounter Assessment: Called by primary RN to report a new infiltration to left arm after vancomycin administration left arm with mild edema on iv site, denies pain, denies any other discomfort. plan: Elevated left arm to heart level Ice pack left arm and monitor frequently No signs of redness of arm, and patient otherwise reports to be comfortable monitor, if pain develops please report thank you melchor grayson np
[2017-10-25] MEDS: ZOLPIDEM TARTRATE 5 MG TABLET PO PRN (22:57)
[2017-10-26] MEDS ORDERED: SODIUM CHLORIDE 1,000 ML IV SCH
[2017-10-26] MEDS ORDERED: morphine CARPU-JECT 2 MG/1 ML DISP.SYRIN IVPUSH PRN ×2
[2017-10-26] MEDS: VANCOMYCIN 1,250 MG in DEXTROSE 5%-WATER - 250 ML IVPB SCH ×2 (04:07→16:15)
[2017-10-26] MEDS ORDERED: MORPHINE SULFATE 2 MG/ML VIAL IVPUSH PRN ×2 (04:33→15:25)
[2017-10-26] MEDS: DOCUSATE SODIUM 100 MG CAPSULE (FP) PO SCH ×4 (05:26→21:33)
[2017-10-26] MEDS ORDERED: INSULIN (NOVOLOG) ASPART 100 UNITS/ML 10ML VIAL ONE (10:17)
--- NOTE | 2017-10-26 14:02 | PN ---
Progress Note (short form) - Note Progress Note: I examined the patient's right knee. His infection has improved, less overall swelling, less erythema. However there is still a very tender, tense swelling over the right knee medial aspect. Appears superficial, it does not look intra articular. No drainage at the moment. Rec NPO To OR today for an open I and D All questions and concerns addressed
[2017-10-26] MEDS ORDERED: ONDANSETRON 4 MG/2 ML VIAL IVPUSH PRN (14:05)
[2017-10-26] MEDS ORDERED: LACTATED RINGERS SOLUTION 1,000 ML IV SCH (14:15)
[2017-10-26] MEDS ORDERED: MIDAZOLAM HCL 2 MG/2 ML SINGLE DOSE VIAL ONE ×2 (14:29)
[2017-10-26] MEDS ORDERED: PROPOFOL 20 ML ONE ×2 (14:33→14:37)
[2017-10-26] MEDS ORDERED: BACITRACIN 50,000 UNITS VIAL TP ONE (14:41)
--- NOTE | 2017-10-26 15:00 | OP ---
Operative Note - Note: Operative Date: 10/26/17 Pre-Operative Diagnosis: right knee superficial infection Operation: right knee open I & D, incicion and drainage Post-Operative Diagnosis: Same as Pre-op Surgeon: Marcos Amezquita Solar Process Engineer: Dinh Noe Anesthesiologist/EDITOR MAP: Red Duran Anesthesia: General Specimens Removed: 2 x culture sticks Estimated Blood Loss (mls): 5 Blood Volume Replaced (mls): 0 Fluid Volume Replaced (mls): 300 Operative Report Dictated: Yes
[2017-10-26] MEDS ORDERED: ACETAMINOPHEN 325 MG TABLET (FP) PO PRN (15:25)
--- NOTE | 2017-10-26 15:40 | OP ---
DATE OF OPERATION: DATE OF DICTATION: 10/26/2017 PREOPERATIVE DIAGNOSIS: Right knee superficial infection. POSTOPERATIVE DIAGNOSIS: Right knee superficial infection. PROCEDURE: Open incision and drainage right knee. DRAINS: None. COMPLICATIONS: None. SPECIMENS: 2 culture sticks. SURGEON: Thad Morillo M.D. MANAGER DATABASE ADMINISTRATION: Irene Jones ANESTHESIOLOGIST: Red Duran M.D. ANESTHESIA: LMA BLOOD LOSS: 5 mL. BLOOD GIVEN: None. INDICATION: The patient is a 47-year-old male with the preoperative diagnosis of a superficial abscess in the medial aspect of the right knee. After understanding the potential risks, complications, alternatives, benefits to surgery versus nonsurgical treatment, the patient elected to undergo this procedure. DESCRIPTION OF PROCEDURE: The patient was brought to the operating room, peripheral IV placed, IV sedation, given. The patient was already on antibiotics. LMA anesthesia was induced. The tourniquet was applied but was not used. It was just there in case we needed it. The right lower extremity was prepped and draped in the sterile fashion. A number 15 scalpel blade was utilized to make a 1.5 inch longitudinal incision over the superficial abscess. We were able to express about 6 mL of blood and pus. Two cultures sticks were sent off and then used about 800 mL of sterile saline with 50,000 units of bacitracin in 1 L to hand lavage the wound. It was relatively small, did not track anywhere. It was very superficial, did not go into the joint. We irrigated it until the irrigation came back clear. The area was dried. Lashanda were used to close the top and bottom of the wound. A small portion was left open in the middle for additional drainage. . The areas were washed and dried, covered with 4x4 gauze, Webril, and Leonel bandage. Total operative times was about 15 minutes. There were no complications during the case. The patient tolerated the procedure quite well, was brought to the regular recovery in stable condition. THAD MORILLO M.D. CHER/[id number]
[2017-10-26] MEDS: SODIUM CHLORIDE 1,000 ML IV SCH (16:35)
--- NOTE | 2017-10-26 17:20 | PN ---
Physical Exam: SUBJECTIVE: Patient seen and examined. Minimal pain to left knee. OBJECTIVE: Vital Signs Period Temp Pulse Resp BP Sys/Miller Pulse Ox Last 24 Hr 97.9 F-98.5 F 62-91 8-18 98-143/52-86 96-99 GENERAL: The patient is awake, alert, and fully oriented, in no acute distress. LUNGS: Breath sounds equal, clear to auscultation bilaterally, no wheezes, no crackles, no accessory muscle use. HEART: Regular rate and rhythm, S1, S2 ABDOMEN: Soft, nontender, nondistended EXTREMITIES: RLE: surgical dressing and outer wrapping c/d/i, 2+ pulses, warm, well-perfused, no edema. NEUROLOGICAL: Cranial nerves II through XII grossly intact. Normal speech, gait not observed. Active Medications Generic Name Dose Route Start Last Admin Trade Name Freq PRN Reason Stop Dose Admin Acetaminophen 650 mg 10/26/17 15:25 Tylenol - PO Q4H PRN PAIN LEVEL 1 - 3 Docusate Sodium 100 mg 10/26/17 22:00 Colace - PO TID DEE Sodium Chloride 1,000 mls @ 100 mls/hr 10/26/17 15:25 10/26/17 16:35 Normal Saline - IV 0 mls ASDIR DEE Administration Vancomycin HCl 1,250 mg/ 250 mls @ 166.667 mls/hr 10/26/17 16:00 10/26/17 16: 15 Dextrose IVPB 166.667 mls/hr Q12H DEE Administration Morphine Sulfate 1 mg 10/26/17 15:25 Morphine Sulfate IVPUSH Q6H PRN PAIN LEVEL 7 - 10 Ondansetron HCl 4 mg 10/26/17 14:05 Zofran Injection IVPUSH Q6H PRN NAUSEA AND/OR VOMITING Oxycodone HCl 10 mg 10/26/17 15:25 Roxicodone - PO Q6H PRN PAIN LEVEL 7 - 10 Oxycodone HCl 5 mg 10/26/17 15:25 Roxicodone - PO Q6H PRN PAIN LEVEL 4 - 6 Zolpidem Tartrate 5 mg 10/26/17 15:25 Ambien - PO HS PRN INSOMNIA ASSESSMENT/PLAN: 47 year-old male with no significant PMH admitted for right knee cellulitis. Right knee MRSA cellulitis with abscess --s/p I&D today, cultures sent --continue vanc (day #5) --vanc trough in am FEN Fluids: PO intake adequate Electrolytes: replete as indicated Nutrition: regular diet DVT prophylaxis: left SCD for tonight, oob, ambulation; if no bleeding in am can start subq prophylaxis Physical therapy Dispo: continues to require inpatient care. Full code. Visit type - Emergency Visit Emergency Visit: Yes ED Registration Date: 10/22/17 Care time: The patient presented to the Emergency Department on the above date and was hospitalized for further evaluation of their emergent condition. - New Patient This patient is new to me today: Yes Date on this admission: 10/26/17 - Critical Care Critical Care patient: No
[2017-10-26] MEDS: oxyCODONE HCL 5 MG TABLET PO PRN (18:06)
[2017-10-26] MEDS: ZOLPIDEM TARTRATE 5 MG TABLET PO PRN (22:32)
[2017-10-27] MEDS: oxyCODONE HCL 5 MG TABLET PO PRN ×3 (01:07→21:26)
[2017-10-27] MEDS: VANCOMYCIN 1,250 MG in DEXTROSE 5%-WATER - 250 ML IVPB SCH ×2 (03:45→16:33)
[2017-10-27] MEDS: SODIUM CHLORIDE 1,000 ML IV SCH (03:46)
[2017-10-27] MEDS: DOCUSATE SODIUM 100 MG CAPSULE (FP) PO SCH ×3 (05:22→22:05)
--- NOTE | 2017-10-27 11:00 | PN ---
Progress Note (short form) - Note Progress Note: Ortho Pt seen and examined s/p right knee I & D pod #1 Selected Entries 10/25/17 10/27/17 08:53 08:38 Temperature 98.5 F 98.3 F Pulse Rate 75 74 Respiratory 18 18 Rate Blood Pressure 105/59 126/60 Laboratory Tests 10/25/17 06:00 WBC 7.2 Hgb 15.4 Hct 45.8 Plt Count 206 incision c/d/i, janice intact, no drainage, decr pain, incr rom nvi a/p ABX as per ID PT eval wbat rom exercises pain control d/c planning
--- NOTE | 2017-10-27 11:42 | DS ---
Physical Exam: SUBJECTIVE: Patient seen and examined. Walking, able to do squats. OBJECTIVE: Vital Signs Period Temp Pulse Resp BP Sys/Miller Pulse Ox Last 24 Hr 98 F-98.5 F 68-91 8-20 114-143/51-86 96-98 PHYSICAL EXAM GENERAL: The patient is awake, alert, and fully oriented, in no acute distress. LUNGS: Breath sounds equal, clear to auscultation bilaterally, no wheezes, no crackles, no accessory muscle use. HEART: Regular rate and rhythm, S1, S2 ABDOMEN: Soft, nontender, nondistended EXTREMITIES: RLE: surgical dressing and outer wrapping c/d/i, 2+ pulses, warm, well-perfused, no edema. NEUROLOGICAL: Cranial nerves II through XII grossly intact. Normal speech, gait not observed. LABS CBCD WBC 7.2 K/mm3 (4.0-10.0) 10/25/17 06:00 RBC 4.72 M/mm3 (4.00-5.60) 10/25/17 06:00 Hgb 15.4 GM/dL (11.7-16.9) 10/25/17 06:00 Hct 45.8 % (35.4-49) 10/25/17 06:00 MCV 96.9 fl (80-96) H 10/25/17 06:00 MCHC 33.6 g/dl (32.0-35.9) 10/25/17 06:00 RDW 11.8 % (11.9-15.9) L 10/25/17 06:00 Plt Count 206 K/MM3 (134-434) 10/25/17 06:00 MPV 9.1 fl (7.5-11.1) 10/25/17 06:00 CMP Sodium 138 mmol/L (136-145) 10/25/17 06:00 Potassium 4.3 mmol/L (3.5-5.1) 10/25/17 06:00 Chloride 101 mmol/L (98-107) 10/25/17 06:00 Carbon Dioxide 28 mmol/L (21-32) 10/25/17 06:00 Anion Gap 9 MMOL/L (8-16) 10/25/17 06:00 BUN 10 mg/dL (7-18) 10/25/17 06:00 Creatinine 1.1 mg/dL (0.7-1.3) 10/25/17 06:00 Creat Clearance w eGFR > 60 (>60) 10/25/17 06:00 Calcium 8.9 mg/dL (8.5-10.1) 10/25/17 06:00 Total Bilirubin 1.3 mg/dL (0.2-1.0) H 10/25/17 06:00 AST 16 U/L (15-37) D 10/25/17 06:00 ALT 17 U/L (12-78) 10/25/17 06:00 Alkaline Phosphatase 66 U/L (45-117) 10/25/17 06:00 Total Protein 7.0 g/dl (6.4-8.2) 10/25/17 06:00 Albumin 3.4 g/dl (3.4-5.0) 10/25/17 06:00 Laboratory Results - last 24 hr 10/27/17 02:30 Vancomycin Pre-Dose 9.30 D HOSPITAL COURSE: Date of Admission:10/22/17 Date of Discharge: 10/27/17 47 year-old male with a PMH significant for prior MRSA infections, admitted for right knee cellulitis. Blood cultures positive for MRSA. Had I&D of abscess of right knee on 10/26, cultures also positive for MRSA. Treated with IV Vanc during hospital stay. PICC line placed. Will need three more weeks of IV Vanc. Will follow up with Dr. Alvarenga in his office. Minutes to complete discharge: 35 Discharge Summary Reason For Visit: CELLULITIS Current Active Problems Cellulitis (Acute) Condition: Improved - Instructions Diet, Activity, Other Instructions: You need to see two doctors in follow up: Dr. Amezquita (ortho) in one week, and Dr. Alvarenga (infectious disease) in two weeks. Their contact information is enclosed in this discharge packet. You will go home with a PICC line and will be on IV antibiotics for several weeks. You may not return to work while you have the PICC line. A work letter is enclosed in this discharge packet. Return to the emergency department for any new or worsening symptoms. If you have any questions do not hesitate to contact us. MCKENZIE Cunha- Hospitalist [facility] [phone] Referrals: Jose Alvarenga MD [Staff Physician] - 2 Weeks Marcos Amezquita MD [Staff Physician] - 1 Week Disposition: HOME - Home Medications Comprehensive Discharge Medication List: Ambulatory Orders Sulfamethoxazole/Trimethoprim [Bactrim Ds -] 1 tab PO BID #16 tablet 10/27/17 This patient is new to me today: No Emergency Visit: Yes ED Registration Date: 10/22/17 Care time: The patient presented to the Emergency Department on the above date and was hospitalized for further evaluation of their emergent condition. Critical Care patient: No - Discharge Referral Referred to [facility] No
[2017-10-27] MEDS ORDERED: PICC LINE 8 ML FLUSH PROTOCOL IVPUSH PRN (12:15)
--- NOTE | 2017-10-27 12:34 | PN ---
Progress Note, Physician History of Present Illness: s/p I&D R knee abscess No c/o R knee pain No fever/ chills Afebrile Repeat BC (-) Echo no vegetations - Current Medication List Current Medications: Active Medications Acetaminophen (Tylenol -) 650 mg PO Q4H PRN PRN Reason: PAIN LEVEL 1 - 3 Docusate Sodium (Colace -) 100 mg PO TID [facility] Last Admin: 10/27/17 05:22 Dose: Not Given IV Flush (Picc Line Flush) 8 ml IVPUSH PRN PRN PRN Reason: Protocol Sodium Chloride (Normal Saline -) 1,000 mls @ 100 mls/hr IV ASDIR [facility] Last Admin: 10/27/17 03:46 Dose: 100 mls/hr Vancomycin HCl 1,250 mg/ (Dextrose) 250 mls @ 166.667 mls/hr IVPB Q12H [facility] Last Admin: 10/27/17 03:45 Dose: 166.667 mls/hr Morphine Sulfate (Morphine Sulfate) 1 mg IVPUSH Q6H PRN PRN Reason: PAIN LEVEL 7 - 10 Ondansetron HCl (Zofran Injection) 4 mg IVPUSH Q6H PRN PRN Reason: NAUSEA AND/OR VOMITING Oxycodone HCl (Roxicodone -) 10 mg PO Q6H PRN PRN Reason: PAIN LEVEL 7 - 10 Last Admin: 10/27/17 08:36 Dose: 10 mg Oxycodone HCl (Roxicodone -) 5 mg PO Q6H PRN PRN Reason: PAIN LEVEL 4 - 6 Zolpidem Tartrate (Ambien -) 5 mg PO HS PRN PRN Reason: INSOMNIA Last Admin: 10/26/17 22:32 Dose: 5 mg - Objective Vital Signs: Vital Signs Temperature 98.3 F 10/27/17 08:38 Pulse Rate 74 10/27/17 08:38 Respiratory Rate 18 10/27/17 09:00 Blood Pressure 126/60 10/27/17 08:38 O2 Sat by Pulse Oximetry (%) 97 10/27/17 09:00 Constitutional: Yes: No Distress Eyes: Yes: Conjunctiva Clear Musculoskeletal: Yes: Other (R knee wound with janice in place No erythema/ drainage) Labs: CBC, BMP 10/25/17 06:00 10/25/17 06:00 Assessment/Plan Cellulitis/ soft tissue abscess R knee MRSA MRSA bacteremia Continue vancomycin PICC for nursing home IV Vancomycin ( additional 3W)
[2017-10-27] MEDS ORDERED: PT OWN MED DRAWER 7, Y5N ONE (19:56)
[2017-10-27] MEDS: ZOLPIDEM TARTRATE 5 MG TABLET PO PRN (23:28)
[2017-10-28] MEDS: VANCOMYCIN 1,250 MG in DEXTROSE 5%-WATER - 250 ML IVPB SCH (05:00)
[2017-10-28] MEDS: oxyCODONE HCL 5 MG TABLET PO PRN (05:38)
[2017-10-28] MEDS: DOCUSATE SODIUM 100 MG CAPSULE (FP) PO SCH ×2 (05:40→13:33)
--- NOTE | 2017-10-28 09:55 | PN ---
Progress Note (short form) - Note Progress Note: Ortho Pt seen and examined s/p right knee I & D pod #2 Selected Entries 10/28/17 05:55 Temperature 97.9 F Pulse Rate 60 Respiratory 16 Rate Blood Pressure 110/58 Laboratory Tests 10/25/17 06:00 WBC 7.2 Hgb 15.4 Hct 45.8 Plt Count 206 incision c/d/i, janice intact, no drainage, decr pain, incr rom nvi a/p ABX as per ID PICC line keep dressing dry and intact PT eval wbat rom exercises pain control f/u in the office in 1 week
[2017-10-28 14:39] VITALS: BP 122/66; PULSE 80; TEMP 98.3
== END 2017-10-28 15:27 | disposition home or self-care (01) | DRG 385 ==
LOC: JER 05:34 → JERBED 12:58 → J7W 17:32
PROVIDERS: ADMIT Internal Medicine; ATTEND Nurse Practitioner Acute Care
PROC: 02HV33Z Insertion of Infusion Device into Superior Vena Cava, Percutaneous Approach (ICD-10-PCS; 2017-10-26)
PROC: B548ZZA Ultrasonography of Superior Vena Cava, Guidance (ICD-10-PCS; 2017-10-26)
PROC: 0H9KXZX Drainage of Right Lower Leg Skin, External Approach, Diagnostic (ICD-10-PCS; principal; 2017-10-26 14:00)
DX: S80.261A Insect bite (nonvenomous), right knee, initial encounter (principal); L03.115 Cellulitis of right lower limb; L02.415 Cutaneous abscess of right lower limb; B95.62 Methicillin resistant Staphylococcus aureus infection as the cause of diseases classified elsewhere
CPT/HCPCS: 36415; 36569; 73701-TC-RT; 77001-TC-FY; 80053; 81003; 83605; 83735; 85025; 85651; 86140; 87040; 87070; 87186; 87205; 93005; 93010; 93306-TC; 94760; 99282-25; C1751; G0480; J0131; J0875; J1644; J7030

== ENCOUNTER 2019-08-24 09:35 | Emergency (ER) | payer OTHER ==
--- NOTE | 2019-08-24 09:41 | PDOC ---
Rapid Medical Evaluation Time Seen by Provider: 08/24/19 09:38 Medical Evaluation: Allergies Allergy/AdvReac Type Severity Reaction Status Date / Time No Known Allergies Allergy Verified 07/04/19 03:39 08/24/19 09:38 I performed a brief in-person evaluation of this patient. Pt is a 49 y/o male who presents to the ED after having an exposure to a polymer while at work. He states he was taking off a cap and it popped off going into his eyes. He states he has been rinsing his eyes for the last 1 hour. He admits to significant burning, blurred vision L>R. He does not wear contact lenses. Pertinent physical exam findings: + eyes watering significantly, + injected b/l I have ordered the following: eye wash, ph testing Patient to proceed to ED for further evaluation. Discharge Disposition - Diagnosis Chemical exposure of eye - Referrals - Patient Instructions - Post Discharge Activity
[2019-08-24 09:47] VITALS: BP 136/78; PULSE 105; TEMP 98.6; BMI 26.4
[2019-08-24] MEDS ORDERED: TETRACAINE 0.5% HCL 0.6ML DROPPER.BOTTLE OD ONE (09:51)
[2019-08-24] MEDS ORDERED: TETRACAINE 0.5% OPHTH SOLN 2 ML BOTTLE ONE ×2 (09:51→11:15)
--- NOTE | 2019-08-24 10:09 | PDOC ---
History of Present Illness - General Chief Complaint: Foreign Body (FB) Stated Complaint: EYE EXPOSURE Time Seen by Provider: 08/24/19 09:38 - History of Present Illness Initial Comments: 08/24/19 10:09 HPI: 49 y/o no pmh presenting with BL ocular foreign body. 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 has blurry vision and lacrimation and pain. difficulty opening eyes PMHx: as noted above ROS: as noted SHx: Denies tobacco use; no alcohol use; no rec drugs Allergies: NKDA ROS: GENERAL/CONSTITUTIONAL: No fever or chills. No weakness. HEAD, EYES, EARS, NOSE AND THROAT: +change in vision. No ear pain or discharge. No sore throat. CARDIOVASCULAR: No chest pain or shortness of breath RESPIRATORY: No cough, wheezing, or hemoptysis. GASTROINTESTINAL: No nausea, vomiting, diarrhea or constipation. GENITOURINARY: No dysuria, frequency, or change in urination. MUSCULOSKELETAL: No joint or muscle swelling or pain. No neck or back pain. SKIN: No rash NEUROLOGIC: No headache, vertigo, loss of consciousness, or change in strength/sensation. ENDOCRINE: No increased thirst. No abnormal weight change HEMATOLOGIC/LYMPHATIC: No anemia, easy bleeding, or history of blood clots. ALLERGIC/IMMUNOLOGIC: No hives or skin allergy. PE: GENERAL: Awake, alert, and fully oriented, no acute distress HEAD: No signs of trauma, normocephalic, atraumatic EYES: EOMI, conjunctiva injected, thin film in eye, visual acquity 20/20 but reports blurry ENT: Auricles normal inspection, hearing grossly normal, nares patent, oropharynx clear without exudates. Moist mucosa NECK: Normal ROM, no lymphadenopathy LUNGS: No increased work of breathing, symmetrical chest rise, clear to auscultation bilaterally, no wheezes, crackles or rhonchi HEART: Regular rate, regular rhythm, normal S1 and S2, no murmur, peripheral pulses 2+ and equal bilaterally. ABDOMEN: Soft, nondistended, nontender. No guarding, no rebound. No masses. No CVAT MUSCULOSKELETAL: FROM NEUROLOGICAL: Cranial nerves II through XII grossly intact. Normal speech, stable gait, no focal sensorimotor deficits SKIN: Warm, Dry, normal turgor, no rashes or lesions noted Past History - Medical History Allergies/Adverse Reactions: Allergies Allergy/AdvReac Type Severity Reaction Status Date / Time No Known Allergies Allergy Verified 08/24/19 09:47 Home Medications: Ambulatory Orders Polymyxin B Sulfate/Tmp [Polytrim Opthalmic Solution -] 1 drop OU Q3H #1 bottle 08/24/19 COPD: No - Psycho-Social/Smoking History Smoking History: Never smoked Have you smoked in the past 12 months: No Number of Cigarettes Smoked Daily: 1 If you are a former smoker, when did you quit?: yes Information on smoking cessation initiated: No 'Breaking Loose' booklet given: 04/28/13 - Substance Abuse Hx (Audit-C & DAST Scrn) How often the patient has a drink containing alcohol: Never Score: In Men: 4 or > Positive; In Women: 3 or > Positive: 0 Screen Result (Pos requires Nsg. Audit-10AR): Negative In the last yr the pt used illegal drug/Rx for NonMed reason: No Score: Yes response is considered Positive: 0 Screen Result (Positive result requires Nsg. DAST-10): Negative *Physical Exam - Vital Signs Last Vital Signs Temp Pulse Resp BP Pulse Ox 98.6 F 105 H 18 136/78 100 08/24/19 09:40 08/24/19 09:40 08/24/19 09:40 08/24/19 09:40 08/24/19 09:40 ED Treatment Course - Medications Given in the ED: ED Medications Discontinued Medications Generic Name Dose Route Start Last Admin Trade Name Freq PRN Reason Stop Dose Admin Tetracaine HCl 1 drop 08/24/19 09:51 08/24/19 09:54 Tetravisc 0.5% Eye Drops - OD 08/24/19 09:52 1 drop ONCE ONE Administration Medical Decision Making - Medical Decision Making 08/24/19 19:09 49 y/o no pmh presenting with BL ocular foreign body. Chemicals from sewage [place]. has blurry vision and lacrimation and pain. difficulty opening eyes. VSS, AF. -ardon lamp test with no corneal abrasion -tetracaine administered with improvement -irrigated with 2L -appt made with Dr Gabi Buneo and patient will go today for further eval polytrim scripts sent Discharge - Discharge Information Problems reviewed: Yes Clinical Impression/Diagnosis: Chemical exposure of eye Condition: Stable Disposition: HOME - Additional Discharge Information Prescriptions: Polymyxin B Sulfate/Tmp [Polytrim Opthalmic Solution -] 1 drop OU Q3H #1 bottle - Follow up/Referral - Patient Discharge Instructions Patient Printed Discharge Instructions: DI for Foreign Body in the Eye Additional Instructions: Additional Instructions: Please return to the emergency department with any new or worsening symptoms or concerns including worsening pain, loss of vision, worsening vision, purulence from eye. Please follow up with the tree climber referral we have provided. Dr Gabi Bueno from [facility] located at [address] on the main floor (across the street from [facility]) will see you at 3:15pm today. Please proceed to the clinic today for further evaluation Please take Polytrim eye drops; 1-2 drops every 3 hours for 5 days in both eyes - Post Discharge Activity
[2019-08-24] MEDS ORDERED: FLUORESCEIN NA 1 EA STRIP OD ONE (10:27)
[2019-08-24] MEDS ORDERED: FLUORESCEIN NA 1 EA STRIP ONE (10:36)
--- NOTE | 2019-08-24 10:59 | PDOC ---
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 has blurry vision and lacrimation and pain. difficulty opening eyes, red and irritated. - Physicial Exam PE: 08/24/19 10:55 Agree with the resident's HPI and PE as documented in the electronic medical record. General: Well appearing, awake and alert, NAD. HEENT: NCAT, visual acuity 20/20 b/l no corrective lenses. PERRL, EOMI, bilateral ciliary and sceral injection, no chemosis. no anicteric, moist mucous membranes, clear oropharynx, no oral lesions.. fluorescein staining_no fluroescein uptake, no tear drop sign and no ahmet's sign. globe intact Neck: neck supple, FROM Resp: CTAB, normal and even respirations, no respiratory distress CVS: RRR, no murmurs, 2+ peripheral pulses throughout, no peripheral edema Abdomen: soft, NTND, no rebound or guarding. No CVAT. Back: nontender, normal inspection and ROM] MSK: no edema, PRICE x4, ROM intact. No clubbing or cyanosis. normal bulk and tone. Extremities: no calf tenderness Neuro: alert, oriented appropriately; no focal neurologic deficits Skin: warm and well perfused, cap refill <2 sec, normal color 08/24/19 16:47 - Medical Decision Making 08/24/19 10:56 Vital Signs Temp Pulse Resp BP Pulse Ox 98.6 F 105 H 18 136/78 100 08/24/19 09:40 08/24/19 09:40 08/24/19 09:40 08/24/19 09:40 08/24/19 09:40 vitals reviewed, wnl, reassuring mild tachy, likely stress related copious irrigation. with flushing. 1L per eye copious irrigation visual acuity is preserved 20/20 b/l fluorescein staining_NO uptake, neg ahmet's and no tear drop ophtho call_ophthalmologist referral Dr Gabi Wing from [facility] located at [address] on the main floor (across the street from [facility]) will see pt at 3:15pm today. Polytrim eye drops; 1-2 drops every 3 hours for 5 days in both eyes 08/24/19 16:47 08/25/19 15:03 Discharge - Discharge Information Problems reviewed: Yes Clinical Impression/Diagnosis: Chemical exposure of eye Condition: Stable Disposition: HOME - Admission No - Additional Discharge Information Prescriptions: Polymyxin B Sulfate/Tmp [Polytrim Opthalmic Solution -] 1 drop OU Q3H #1 bottle - Follow up/Referral - Patient Discharge Instructions Patient Printed Discharge Instructions: DI for Foreign Body in the Eye Additional Instructions: Additional Instructions: Please return to the emergency department with any new or worsening symptoms or concerns including worsening pain, loss of vision, worsening vision, purulence from eye. Please follow up with the payroll consultant referral we have provided. Dr Gabi Guerrero MD located at [address] on the main floor (across the street from [facility]) will see you at 3:15pm today. Please proceed to the clinic today for further evaluation Please take Polytrim eye drops; 1-2 drops every 3 hours for 5 days in both eyes - Post Discharge Activity
[2019-08-24] MEDS ORDERED: POLYMYXIN B SULFATE/TMP 10 ML OPHTHALMIC SOLUTION OU SCH (12:00)
== END 2019-08-24 12:08 | disposition home or self-care (01) ==
LOC: JER 09:35
DX: S05.91XA Unspecified injury of right eye and orbit, initial encounter (principal); S05.92XA Unspecified injury of left eye and orbit, initial encounter; Z77.098 Contact with and (suspected) exposure to other hazardous, chiefly nonmedicinal, chemicals
CPT/HCPCS: 99283-25

== ENCOUNTER 2021-09-09 16:21 | Emergency (ER) | payer OTHER ==
[2021-09-09 16:39] VITALS: TEMP 98.7; BMI 24.4
[2021-09-09 19:03] LABS: ALBUMIN 3.6 g/dl (3.4-5.0)
[2021-09-09 19:04] LABS: BLOOD UREA NITROGEN 12.9 mg/dL (7-18)
[2021-09-09 19:05] LABS: BASO % 0.4 % (0-2.0); EOS % 0.2 % (0-4.5); HEMOGLOBIN 13.8 GM/dL (11.7-16.9); LYMPH % 6.7 % (8-40); MCH 33.1 pg (25.7-33.7); MCHC 33.7 g/dl (32.0-35.9); MEAN PLT VOLUME 9.3 fl (7.5-11.1); MONO % 18.6 % (3.8-10.2); NEUT % 74.1 % (42.8-82.8); PLATELET COUNT 184 10^3/uL (134-434); RBC 4.18 M/mm3 (4.00-5.60); RDW 12.1 % (11.9-15.9); WHITE BLOOD COUNT 5.3 K/mm3 (4.0-10.0)
[2021-09-09 19:06] LABS: CREATININE 1.2 mg/dL (0.55-1.3)
[2021-09-09 19:08] LABS: BILIRUBIN,TOTAL 1.6 mg/dL (0.2-1); TOT PROT 6.9 g/dl (6.4-8.2)
[2021-09-09 20:33] VITALS: BP 126/76; PULSE 93; RESP 20
== END 2021-09-09 20:32 | disposition home or self-care (01) ==
LOC: JER 16:21
DX: U07.1 COVID-19 (principal)
CPT/HCPCS: 0241U-QW; 36415; 71046-TC-FY; 80053; 83735; 84484; 85025; 93005; 93010; 99285-25

== ENCOUNTER 2021-09-11 07:33 | Emergency (ER) | payer OTHER ==
[2021-09-11 07:37] VITALS: BMI 24.4
[2021-09-11] MEDS ORDERED: ACETAMINOPHEN 1000 MG/100 ML BAG IVPB ONE (08:22)
[2021-09-11] MEDS ORDERED: SODIUM CHLORIDE 0.9% 500 ML INFUS.BAG IV ONE ×2 (08:22→09:12)
[2021-09-11] MEDS ORDERED: ACETAMINOPHEN INJECTION 100 ML IVPB ONE (08:24)
[2021-09-11 08:40] VITALS: PULSE 69; TEMP 97.9
[2021-09-11 08:43] LABS: HEMATOCRIT 46.2 % (35.4-49); HEMOGLOBIN 15.4 GM/dL (11.7-16.9); MCH 32.3 pg (25.7-33.7); MCHC 33.3 g/dl (32.0-35.9); MEAN CELL VOLUME 97.2 fl (80-96); MEAN PLT VOLUME 9.1 fl (7.5-11.1); PLATELET COUNT 149 10^3/uL (134-434); RBC 4.75 M/mm3 (4.00-5.60)
[2021-09-11 09:03] LABS: ALBUMIN 3.4 g/dl (3.4-5.0); BLOOD UREA NITROGEN 10.4 mg/dL (7-18); CALCIUM 8.8 mg/dL (8.5-10.1); VENOUS BASE EXCESS 1.2 mmol/L (-2-2); VENOUS PCO2 37.9 mmHg (38-52); VENOUS PH 7.44 (7.310-7.410)
[2021-09-11 09:06] LABS: CREATININE 1.1 mg/dL (0.55-1.3)
[2021-09-11 09:08] LABS: BILIRUBIN,TOTAL 1.1 mg/dL (0.2-1); TOT PROT 6.6 g/dl (6.4-8.2)
[2021-09-11 10:29] VITALS: BP 121/71; RESP 20
[2021-09-11 11:33] LABS: ANISOCYTOSIS 1+; MACROCYTOSIS 0; OVALOCYTE 2+
== END 2021-09-11 12:07 | disposition home or self-care (01) ==
LOC: JER 07:33
PROC: 3E033GC Introduction of Other Therapeutic Substance into Peripheral Vein, Percutaneous Approach (ICD-10-PCS; principal; 2021-09-11)
DX: U07.1 COVID-19 (principal)
CPT/HCPCS: 36415; 71045-TC-FY; 80053; 82803; 84484; 85025; 93005; 93010; 99285-25; C9803-CS; U0003; U0005